=== PATIENT | female | born 1950 | race Caucasian/White ===

== ENCOUNTER 2016-12-19 12:15 | Emergency (ER) | payer MEDICARE, MEDICAID ==
[2016-12-19 12:34] VITALS: BP 108/48
--- NOTE | 2016-12-19 12:40 | ERNOTE ---
Lower Extremity HPI - Narrative Date of Service: 12/19/16 - General Time Seen by Provider: 12/19/16 12:20 Source: patient - Immun/Allergies/Home Medications Immunizations: IMMUNIZATION HX Immunizations Up to Date Yes Allergies/Adverse Reactions: Allergies Allergy/AdvReac Type Severity Reaction Status Date / Time No Known Allergies Allergy Unverified 12/19/16 12:34 Home Medications: HOME MEDICATIONS Acetaminophen [Tylenol] 500 mg PO BID PRN #20 tablet 12/19/16 [Last Taken Unknown] - History of Present Illness Narrative: tripped over a toy two days ago and landed onto right knee. Now has right knee pain. Review of Systems - Review of Systems Constitutional: Present: no symptoms reported EYE: Present: no symptoms reported ENT: Present: no symptoms reported Respiratory: Present: no symptoms reported Cardiology: Present: no symptoms reported Gastrointestinal/Abdominal: Present: no symptoms reported Genitourinary: Present: no symptoms reported Skin: Present: no symptoms reported - Patient's Past Medical History Patient History - Medical: Diabetes Type 2 Patient History - Cardiac/Respiratory: COPD, CVA/Stroke, Hypertension, Hyperlipidemia Patient History - Cancer: No Hx of Cancer - Social History Smoking Status: Current every day smoker Have you smoked in the past 12 months: Yes - Immunizations Immunizations Up to Date: Yes Physical Exam - Physical Exam General Appearance: Present: wd/wn, alert, no apparent distress Ears, Nose, Throat: Present: normal ENT inspection, hearing grossly normal Neck: Present: normal inspection, nontender, supple Respiratory: Present: no respiratory distress, normal breath sounds, no accessory muscle use, chest nontender, lungs clear Cardiovascular/Chest: Present: regular rate, rhythm, no murmur, normal peripheral pulses Gastrointestinal/Abdominal: Present: normal bowel sounds, nontender, nondistended Extremity Exam: Present: other - There is no deformity or redness and pt walks without a limp however upon palpation of the right knee she has some tenderness directly on the patella ED Progress - Vital Signs Patient's Vital Signs:: I have reviewed the patient's vital signs. Vital Signs: Vital Signs 12/19/16 12:31 Temperature 36.4 C L Pulse Rate 105 H Respiratory 18 Rate Blood Pressure 108/48 O2 Sat by Pulse 100 Oximetry - X-Ray X-Ray #1 X-Ray: knee - normal - Progress/Reassessment Chief Complaint: Lower Extremity Pain/ Injury Departure Clinical Impression: Contusion of knee, right Qualifiers: Encounter type: initial encounter Qualified Code(s): S80.01XA - Contusion of right knee, initial encounter - Departure Disposition: Home self-care Condition: Good Instructions: Knee Pain Prescriptions: Acetaminophen [Tylenol] 500 mg PO BID PRN #20 tablet PRN Reason: Pain
== END 2016-12-19 13:11 | disposition home or self-care (01) ==
LOC: ER 12:15
DX: S80.01XA Contusion of right knee, initial encounter (principal); F17.210 Nicotine dependence, cigarettes, uncomplicated; W18.09XA Striking against other object with subsequent fall, initial encounter